=== PATIENT | male | born 1950 | race Caucasian/White ===

== ENCOUNTER 2019-07-16 07:45 | Outpatient (CLI) | payer MEDICARE, OTHER ==
--- NOTE | 2019-07-16 09:07 | MRI ---
MRI Lower Ext Jt Rt WO Con History: Internal derangement of the knee. Chronic knee pain. Comparison: None. Findings: Medial meniscus: Nondisplaced undersurface tear body and posterior horn medial meniscus at the intermediate zone. Mild soft tissue swelling along the posterior horn. Lateral meniscus: Mild degenerative signal within the lateral meniscal body with a free edge fraying. No displaced tear. The ACL, PCL, MCL, LCL are all intact. Biceps tendon insertion is intact. Extensor mechanism: Quadriceps tendon and patellar intact with moderate patellar tendinosis. Mild pre tibial soft tissue swelling. Cartilage: Patellofemoral compartment: Along the central trochlea as well as of the central aspects of the media l and lateral trochlea is 50-75% chondral thinning. Medial compartment: Multifocal 25-50% chondral fissures along with high-grade 75% chondral loss of th e supra meniscal medial aspect medial femoral condyle with early subcortical marrow changes as well as cortical thinning. Lateral compartment: Focal high-grade chondral defect central weightbearing surface lateral femoral c ondyle measuring 5 mm x 4 mm with early central osteophyte formation. Bones: Small medial and lateral femoral condylar osteophytes. No fracture or malalignment. Low-grade subcortical edema of the medial tibial rim submeniscal surface as well as medial femoral condyle superior meniscal surface. Impression: 1. Nondisplaced undersurface tear body and posterior horn medial meniscus with small volume swelling along the posterior aspect of the medial meniscus. No displaced meniscal fibers. 2. Mild free edge fraying with intrameniscal degenerative signal within the lateral meniscal body wit hout displaced tear. 3. Focal high grade III/early grade IV chondromalacia at the suprameniscal medial femoral condyle and inframeniscal medial tibial plateau. 4. Intact cruciate ligaments and collateral ligaments. 5. 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 6. Focal high-grade 5 x 4 mm chondral defect central weightbearing surface lateral femoral condyle.
== END 2019-07-16 07:46 | disposition home or self-care (01) ==
LOC: SCSMRI 07:45
PROVIDERS: ATTEND Orthopaedic Surgery
DX: M23.91 Unspecified internal derangement of right knee (principal); S83.241A Other tear of medial meniscus, current injury, right knee, initial encounter; M94.261 Chondromalacia, right knee

== ENCOUNTER 2019-11-29 06:48 | Outpatient (CLI) | payer MEDICARE, OTHER ==
[2019-11-29 16:37] LABS: #Eosinphils 0.1 thou/uL (0.0-0.7); #Lymphocytes 2.2 thou/uL (1.20-3.40); #Monocytes 0.5 thou/uL (0.11-0.59); #Neutrophils 5.5 thou/uL (1.40-6.50); %Basophils 0.6 % (0.0-1.0); %Eosinophils 1.5 % (0.0-10.0); %Lymphocytes 26.6 % (21.0-51.0); %Monocytes 5.7 % (0.0-10.0); %Neutrophils 65.6 % (42.0-75.0); Mean Corpuscular HGB CONC 34.2 g/dL (32.0-36.0); Mean Corpuscular Hemoglobin 32.1 pg (27.0-31.0); Mean Corpuscular Volume 93.9 fL (78.0-98.0); Mean Platelet Volume 8.6 fL (7.4-10.4); Platelet Count 206 thou/uL (130-400); RBC Distribution Width 11.6 % (11.5-14.5); Red Blood Cell (RBC) Count 5.32 mill/uL (4.70-6.10); White Blood Cell (WBC) Count 8.4 thou/uL (4.8-10.8)
[2019-11-29 16:53] LABS: Anion Gap 13 mmol/L (10-20); BUN (Urea Nitrogen) 17 mg/dL (8.4-25.7); Calc. Creatinine Clearance 0 mL/min (70-130); Calcium 9.3 mg/dL (7.8-10.44); Carbon Dioxide 23 mmol/L (23-31); Chloride 104 mmol/L (98-107); Estimated GFR-MDRD 90; Glucose 176 mg/dL (80-115); Potassium 4.4 mmol/L (3.5-5.1); Sodium 136 mmol/L (136-145)
== END 2019-11-29 06:49 | disposition home or self-care (01) ==
LOC: LABBT 06:48
PROVIDERS: ATTEND Orthopaedic Surgery
DX: Z01.818 Encounter for other preprocedural examination (principal); Z11.59 Encounter for screening for other viral diseases; G56.03 Carpal tunnel syndrome, bilateral upper limbs
CPT/HCPCS: 80048; 85025; U0003; 87635

== ENCOUNTER 2019-12-01 06:00 | Day surgery (SDC) | payer MEDICARE, OTHER ==
[2019-11-25 15:01] VITALS: BMI 28.7
--- NOTE | 2019-11-30 13:46 | HP ---
HISTORY OF PRESENT ILLNESS: The patient is a 69-year-old right-handed male with a several year history of bilateral wrist and elbow pain, which has become worse over the past several months. He has pain and tingling in the ulnar nerve distribution, which is persistent despite restriction of activity, splinting, and anti-inflammatory medication. Electrodiagnostic studies revealed moderate severe bilateral cubital tunnel syndrome. He is more symptomatic on the right side. 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 He is now having progressive symptoms, which are interfering with day-to-day activities including using his hands and sleeping. PAST MEDICAL HISTORY: The patient has a history of diet-controlled diabetes, hyperlipidemia, and BPH. CURRENT MEDICATIONS: Include zyrtec. ALLERGIES: HE IS ALLERGIC TO AMOXICILLIN, WHICH CAUSES DIARRHEA. FAMILY HISTORY: Otherwise unremarkable. SOCIAL HISTORY: Otherwise unremarkable. REVIEW OF SYSTEMS: Otherwise unremarkable. PHYSICAL EXAMINATION: GENERAL: Reveals a healthy male. HEENT: Unremarkable. NECK: Supple. CHEST: Clear. HEART: Regular rate and rhythm. ABDOMEN: Soft and nontender. RECTAL: Deferred. GENITAL: Deferred. EXTREMITIES: Pertinent findings related to both upper extremities. There is slight tenderness over the cubital tunnel bilaterally, right greater than left. There is full range of motion. There is a negative over the cubital tunnel. There is subjective numbness in 5th finger and in ulnar nerve distribution bilaterally, right slightly greater than left. There is good capillary refill. Motor exam is intact. DIAGNOSTIC STUDIES: As mentioned above reveal moderately severe bilateral cubital tunnel syndrome. IMPRESSION: Bilateral cubital tunnel syndrome, right symptomatic more than left and right cubital tunnel release. The nature of the surgery, length of recovery, and potential complications such as infection, loss of motion, incomplete relief, nerve root injury, and need for additional treatment, and repeat surgery have been discussed in detail. He may ultimately require surgery on the left side once he has recovered from the right. Job ID: [id number]
[2019-12-01] MEDS ORDERED: Lidocaine 1% w/Epinephrine 1:100K 20 ML VIAL ONE (06:44)
[2019-12-01] MEDS ORDERED: Bupivacaine PF 0.5% 30 ML VIAL ONE (06:44)
[2019-12-01] MEDS ORDERED: Midazolam HCl 2 mg/2 ml Vial ONE (07:40)
[2019-12-01] MEDS ORDERED: Fentanyl 100 MCG/2 ML VIAL ONE (07:40)
--- NOTE | 2019-12-01 09:30 | OP ---
DATE OF PROCEDURE: 12/01/2019 ANESTHESIA: General. PREOPERATIVE DIAGNOSIS: Right cubital tunnel syndrome. POSTOPERATIVE DIAGNOSIS: Right cubital tunnel syndrome. PROCEDURE PERFORMED: Right cubital tunnel release. DESCRIPTION OF PROCEDURE: After satisfactory anesthesia was induced in position, the patient was prepped and draped in routine manner. The right arm was elevated and exsanguinated with an Esmarch bandage and the tourniquet inflated to 250 mmHg. A longitudinal incision was made centered over the medial epicondyle, carried down through the subcutaneous tissues. Bleeding points were controlled with Bovie cautery and also the bipolar cautery. Using sharp and blunt dissection, the cubital tunnel was released from the medial intermuscular septum distally between the two heads of the flexor carpi ulnaris. The ulnar nerve was gently freed up and it was found to be mobile. No attempt was made to totally skeletonize the nerve. It appeared to be free and mobile. The wound was thoroughly irrigated. The subcutaneous tissues were closed with interrupted 2-0 Vicryl and the skin was closed with a running subcuticular 3-0 V-Loc and SurgiSeal skin adhesive. A sterile bulky compressive dressing was applied. The tourniquet deflated after 23 minutes. The hand promptly pinked up, and the patient was immobilized in a long-arm plaster splint and arm sling. He was awakened and taken to recovery room in stable condition. There were no apparent intraoperative complications. ESTIMATED BLOOD LOSS: Negligible. The patient will be discharged home in satisfactory condition. Instructed on ice, elevation, and given written cast care instructions. He has [place] 5 at home for pain. He will be seen back in my office in 10 to 14 days or sooner, if there are any problems prior to that time. Job ID: [id number]
[2019-12-01] MEDS ORDERED: HYDROcodone/Acetaminophen 5/325 mg Tablet ONE (09:35)
[2019-12-01] MEDS ORDERED: PROPOFOL 200 MG/20 ML VIAL ONE (10:59)
[2019-12-01] MEDS ORDERED: Lidocaine 1% PF 5 ML VIAL ONE (10:59)
--- NOTE | 2019-12-01 15:46 | EKG ---
Test Reason : PREOP Blood Pressure : / mmHG Vent. Rate : 053 BPM Atrial Rate : 053 BPM P-R Int : 186 ms QRS Dur : 086 ms QT Int : 444 ms P-R-T Axes : -07 -24 -07 degrees QTc Int : 416 ms Sinus bradycardia Nonspecific T wave abnormality Otherwise normal ECG Confirmed by KALLI POLLARD ([id number]) on 12/01/2019 3:46:42 PM Referred By: MARK Confirmed By:KALLI POLLARD
== END 2019-12-01 10:38 | disposition home or self-care (01) ==
LOC: SDC 06:00
PROVIDERS: ATTEND Orthopaedic Surgery
PROC: 01N40ZZ Release Ulnar Nerve, Open Approach (ICD-10-PCS; principal; 2019-12-01)
DX: G56.23 Lesion of ulnar nerve, bilateral upper limbs (principal); E11.9 Type 2 diabetes mellitus without complications; E78.5 Hyperlipidemia, unspecified; N40.0 Benign prostatic hyperplasia without lower urinary tract symptoms; I10 Essential (primary) hypertension; I25.2 Old myocardial infarction; Z87.891 Personal history of nicotine dependence; Z79.899 Other long term (current) drug therapy; Z88.0 Allergy status to penicillin
CPT/HCPCS: 93005; 93010; J0690; J2001; J2250; J2704; J3010; S0020

== ENCOUNTER 2020-03-10 06:32 | Outpatient (CLI) | payer MEDICARE, OTHER ==
[2020-03-10 14:01] LABS: Hemoglobin 16.5 g/dL (14.0-18.0); Mean Corpuscular HGB CONC 33.8 g/dL (32.0-36.0); Mean Corpuscular Hemoglobin 32.2 pg (27.0-31.0); Mean Corpuscular Volume 95.4 fL (78.0-98.0); Platelet Count 189 thou/uL (130-400); RBC Distribution Width 11.5 % (11.5-14.5); Red Blood Cell (RBC) Count 5.13 mill/uL (4.70-6.10)
[2020-03-10 14:10] LABS: INR-International Normal Ratio 0.9; PTT 34.3 sec (22.9-36.1); Prothrombin Time 12.3 sec (12.0-14.7)
[2020-03-10 14:20] LABS: Bacteria/HPF None Seen HPF (None Seen); Bilirubin Negative (Negative); Blood, Urine Negative (Negative); Clarity Clear (Clear); Glucose, Urine (Dipstick) Normal (Negative); Ketone, Urine Negative (Negative); Leukocyte Negative Leu/uL (Negative); Nitrite Negative (Negative); Protein, Urine (Dipstick) Negative (Neg-Trace); RBC/HPF 0-3 HPF (0-3); Specific Gravity, Urine 1.021 (1.002-1.036); Squamous Epithelial None Seen HPF (0-3); Urobilinogen Normal mg/dL (Less than 2)
[2020-03-10 14:45] LABS: Anion Gap 18 mmol/L (10-20); BUN (Urea Nitrogen) 16 mg/dL (8.4-25.7); Calc. Creatinine Clearance 0 mL/min (70-130); Calcium 9.1 mg/dL (7.8-10.44); Carbon Dioxide 19 mmol/L (23-31); Chloride 105 mmol/L (98-107); Estimated GFR-MDRD Greater than 90; Glucose 117 mg/dL (80-115); Potassium 4.7 mmol/L (3.5-5.1); Sodium 137 mmol/L (136-145)
[2020-03-12 12:13] LABS: SARS-CoV-2 MS2 Positive; SARS-CoV-2 N Gene Negative; SARS-CoV-2 S Gene Negative; SARS-CoV-2 by NAA Not Detected (NotDetected); SARS-CoV-2 orf1ab Negative
--- NOTE | 2020-03-13 15:39 | EKG ---
Test Reason : Blood Pressure : / mmHG Vent. Rate : 058 BPM Atrial Rate : 058 BPM P-R Int : 170 ms QRS Dur : 076 ms QT Int : 422 ms P-R-T Axes : 036 -21 020 degrees QTc Int : 414 ms Sinus bradycardia Otherwise normal ECG Confirmed by ZI STOVALL M.D. ([id number] on 03/13/2020 3:39:33 PM Referred By: TAMI Confirmed By:ZI STOVALL M.D.
== END 2020-03-10 06:33 | disposition home or self-care (01) ==
LOC: LABBT 06:32
PROVIDERS: ATTEND Urology
DX: Z01.818 Encounter for other preprocedural examination (principal); Z20.828 Contact with and (suspected) exposure to other viral communicable diseases; Z12.5 Encounter for screening for malignant neoplasm of prostate; N40.1 Benign prostatic hyperplasia with lower urinary tract symptoms; R35.1 Nocturia; R39.198 Other difficulties with micturition; N52.9 Male erectile dysfunction, unspecified
CPT/HCPCS: 80048; 81001; 85027; 85610; 85730; 87086; 93005; U0003; 87635; 93010

== ENCOUNTER 2020-03-15 06:07 | Observation (INO) | payer MEDICARE, OTHER ==
[2020-03-13 15:03] VITALS: BMI 28.7
[2020-03-15] MEDS ORDERED: Levofloxacin 500 mg/D5W 100 ml Premix Bag ONE ×2 (06:25→06:53)
[2020-03-15] MEDS ORDERED: Propofol 500 MG/50 ML VIAL ONE (06:45)
[2020-03-15] MEDS ORDERED: Fentanyl 100 MCG/2 ML VIAL ONE (06:45)
[2020-03-15] MEDS ORDERED: Propofol 1,000 MG/100 ML VIAL IV ONE (06:45)
[2020-03-15] MEDS ORDERED: Midazolam HCl 2 mg/2 ml Vial ONE (06:46)
[2020-03-15] MEDS ORDERED: Phenazopyridine HCl 97.5 MG TABLET ONE (08:34)
--- NOTE | 2020-03-15 09:12 | OP ---
DATE OF PROCEDURE: 03/15/2020 PREOPERATIVE DIAGNOSES: 1. A 69-year-old male with history of BPH. 2. Intolerability to tamsulosin. 3. Severe BPH symptoms with IPSS score of 21. POSTOPERATIVE DIAGNOSES: 1. A 69-year-old male with history of BPH. 2. Intolerability to tamsulosin. 3. Severe BPH symptoms with IPSS score of 21. PROCEDURES PERFORMED: Cystoscopy, UroLift implant x7. ANESTHESIA: TIVA. COMPLICATIONS: None apparent. DISPOSITION: To recovery room in stable condition. ESTIMATED BLOOD LOSS: Minimal. SPECIMEN: None. INDICATIONS FOR PROCEDURE AND HISTORY: Mr. Gonzalez is a pleasant 69-year-old male with history of BPH symptoms, with severe obstructive urinary symptoms of IPSS score of 21, he underwent cystoscopy, volume study and presents today for UroLift. He has been fully informed regarding options of further medical therapy versus transurethral resection of prostate. With all risks and benefits outlined, he desires trial of UroLift with full understanding that he may require more definitive ablative therapy such as TURP. Risks and complications of the procedure were reviewed with him in detail including, but not limited to, bleeding, pain, infection, chronic pain, clot retention, injury to adjacent organs, possible migration of implant resulting encrustation, requiring removal. All questions were answered to his satisfaction and desired to proceed. DESCRIPTION OF PROCEDURE: After an informed consent was signed, the patient was taken to the operating room, placed in the dorsal lithotomy position with the genital area prepped and draped in the usual surgical sterile fashion. A 21- American cystoscope was utilized for cystoscopy, which demonstrated no evidence of urethral stricture. He has severe bilobar hyperplasia of the prostate. There was early intravesical median lobe on rigid cystoscopy, with no significant intravesical median lobe noted. He does have prominent vascularity of the prostatic urethra oozy in nature even with passing of the cystoscope. The UOs were identified away from the bladder neck. There was diffuse trabeculation consistent with chronic outlet obstruction. At this time, we transitioned to the UroLift implant device with a visual obturator. We placed and treated the left lateral lobe first, staying about 1.5 cm proximal to the bladder neck. A total of 3 implants on the left, and total of 4 implants on the right were performed. He had an asymmetric obstructing lobe in the right mid gland prostate. We did perform a stacking maneuver near the bladder neck implant, creating a nice open bladder neck. Although he has at the level of the verumontanum apical tissue, this did not warrant treatment as they were apical in nature and proximal to the veru, he had a nice anterior channel created. An 18-American 3-way Tapia catheter 30 mL was placed without difficulty, 30 mL insufflated. Iwill watch him for degree of hematuria, as he does have prominent vascularity of the prostatic urethra mucosa. pending his postop disposition regarding degree of hematuria, he may undergo voiding trial versus discharge with indwelling Tapia catheter. Prescription for Azo, ciprofloxacin for three days provided. Postop followup tomorrow. Job ID: [id number] [facility]
[2020-03-15] MEDS ORDERED: Hyoscyamine Sulfate SL 0.125 mg Tablet ONE (13:05)
[2020-03-15] MEDS ORDERED: diphenhydrAMINE 50 MG/ML VIAL IVP PRN (14:12)
[2020-03-15] MEDS ORDERED: Phenazopyridine HCl 97.5 MG TABLET PO PRN (14:12)
[2020-03-15] MEDS ORDERED: Ondansetron PF 4 MG/2 ML Vial IVP PRN (14:12)
[2020-03-15] MEDS ORDERED: Oxybutynin 5 MG TAB PO PRN (14:12)
[2020-03-15] MEDS ORDERED: Mag-Al 1200 mg/1200 mg/30 ML UDCUP PO PRN (14:12)
[2020-03-15] MEDS ORDERED: HYDROcodone/Acetaminophen 5/325 mg Tablet PO PRN ×2 (14:12)
[2020-03-15] MEDS ORDERED: hydrALAZINE 20 MG/ML VIAL SLOW IVP PRN ×2 (14:12)
[2020-03-15] MEDS ORDERED: Sodium Chloride 0.9% 1,000 ML IV SCH (14:15)
[2020-03-15] MEDS ORDERED: HYDROcodone/Acetaminophen 5/325 mg Tablet ONE (14:39)
[2020-03-15] MEDS ORDERED: Hyoscyamine Sulfate SL 0.125 mg Tablet SL PRN (14:59)
[2020-03-15] MEDS ORDERED: B & O ONE (15:01)
[2020-03-15] MEDS ORDERED: PROPOFOL 200 MG/20 ML VIAL ONE (15:24)
[2020-03-15] MEDS ORDERED: Morphine 2 MG/ML VIAL SLOW IVP PRN (16:32)
[2020-03-15] MEDS ORDERED: Morphine 4 MG/ML VIAL SLOW IVP PRN (16:32)
[2020-03-15] MEDS ORDERED: Zolpidem Tartrate 5 MG TAB PO PRN (16:32)
[2020-03-15] MEDS: Docusate 100 MG CAP PO SCH (20:45)
[2020-03-15] MEDS: Famotidine/PF 20 mg/2ml Vial SLOW IVP SCH (20:45)
--- NOTE | 2020-03-16 07:39 | PRG ---
DATE OF SERVICE: 03/16/2020 SUBJECTIVE: The patient is doing okay this morning, eating breakfast with his , did have bladder spasms throughout the night. Vital signs are stable. He is afebrile. CBI was held this morning. Urine output demonstrates Pyridium, pink tinged urine with no clots. CBI utilized to flush the catheter with no subsequent clots appreciated. OBJECTIVE: VITAL SIGNS: Stable. ABDOMEN: Soft, nontender, nondistended. : Tapia catheter removed for voiding trial. IMPRESSION AND PLAN: Mr. Gonzalez is a 69-year-old male with history of severe BPH symptoms, postop day #1, cysto, UroLift. The patient was admitted overnight, due to hematuria component and bladder spasms. CBI held this morning, will undergo voiding trial. Anticipate patient will be discharged this morning. Job ID: [id number]
[2020-03-16] MEDS: Docusate 100 MG CAP PO SCH (08:37)
[2020-03-16] MEDS: Famotidine/PF 20 mg/2ml Vial SLOW IVP SCH (08:39)
[2020-03-16] MEDS ORDERED: Loratadine 10 MG TAB PO SCH (09:00)
[2020-03-16 12:05] VITALS: BP 117/71; TEMP 98.2
--- NOTE | 2020-03-17 05:52 | DIS ---
DATE OF ADMISSION: 03/15/2020 DATE OF DISCHARGE: 03/16/2020 BRIEF HOSPITAL COURSE: Mr. Gonzalez is a pleasant 69-year-old male with severe BPH symptoms, unable to tolerate meds due to side effects. He underwent UroLift uneventfully. Intraoperatively, he did have significant varicosities of the prostatic urethra, although surgery was uneventful, he had severe bladder spasms and hematuria, therefore advised regarding overnight stay. His CBI was held this morning, bianca, pink tinge. Subsequently, he has voided successfully multiple times, mild PVR of 104 mL. He has been on multiple antispasmodics overnight, I anticipate his incomplete emptying to resolve. Recommend discharge with ciprofloxacin as previous for a course of 3 days, Azo over the counter p.r.n. for dysuria. FOLLOWUP: followup appointment tomorrow at 8 a.m. to recheck peak flow PVR. The patient is clinically stable. DISPOSITION: To home to self-care. Job ID: [id number]
== END 2020-03-16 12:55 | disposition home or self-care (01) ==
LOC: SDC 06:07 → SJJU 14:15
PROVIDERS: ADMIT Urology; ATTEND Urology
PROC: 0T7D8DZ Dilation of Urethra with Intraluminal Device, Via Natural or Artificial Opening Endoscopic (ICD-10-PCS; principal; 2020-03-15)
DX: N40.1 Benign prostatic hyperplasia with lower urinary tract symptoms (principal); E11.9 Type 2 diabetes mellitus without complications; I10 Essential (primary) hypertension; E78.5 Hyperlipidemia, unspecified; I25.2 Old myocardial infarction; Z79.899 Other long term (current) drug therapy; Z87.891 Personal history of nicotine dependence; Z88.0 Allergy status to penicillin; Z88.8 Allergy status to other drugs, medicaments and biological substances
CPT/HCPCS: C1889; C9740; 96374; 96375; G0378; J1956; J2250; J2704; J3010; S0028

== ENCOUNTER 2023-02-14 13:32 | Outpatient (CLI) | payer MEDICARE, OTHER | END 2023-02-14 13:33 | disposition home or self-care (01) | LOC: RAD 13:32 | PROVIDERS: ATTEND Internal Medicine | DX: M54.9 Dorsalgia, unspecified (principal); R10.32 Left lower quadrant pain; M47.816 Spondylosis without myelopathy or radiculopathy, lumbar region; M51.36 Other intervertebral disc degeneration, lumbar region; M47.817 Spondylosis without myelopathy or radiculopathy, lumbosacral region | CPT/HCPCS: 72100; 72170; 74019 ==